=== PATIENT | female | born 1960 | race Caucasian/White ===

== ENCOUNTER 2019-11-05 18:03 | Emergency (ER) | payer MEDICAID ==
[~2019-11-05] VITALS: Ht 162.6 cm; Wt 105.0 kg
[2019-11-05] MEDS ORDERED: HYDR-3965 PO (20:05)
== END 2019-11-05 20:22 | disposition home or self-care (01) ==
LOC: ER 18:04
DX: M25.561 Pain in right knee (principal); Z88.0 Allergy status to penicillin; Z88.8 Allergy status to other drugs, medicaments and biological substances; Z88.5 Allergy status to narcotic agent; Z79.899 Other long term (current) drug therapy
CPT/HCPCS: 29505; 73564; 99284

== ENCOUNTER 2021-12-06 05:53 | Emergency (ER) | payer MEDICAID ==
[~2021-12-06] VITALS: Ht 165.1 cm; Wt 96.2 kg
[2021-12-06 08:28] LABS: BASOPHILS % (AUTO) 0.6 % (0-1); EOSINOPHILS % (AUTO) 0.5 % (0-6); HEMATOCRIT 41.5 % (35.0-45.0); HEMOGLOBIN 13.8 g/dl (12.0-16.0); LYMPHOCYTES # (AUTO) 0.9 X10'3 (1.1-4.8); LYMPHOCYTES % (AUTO) 16.9 % (21-51); MEAN CORPUSCULAR HEMOGLOBIN 30.3 PG (27.0-31.0); MEAN CORPUSCULAR HGB CONC 33.3 g/dL (33.0-36.5); MEAN CORPUSCULAR VOLUME 91.1 FL (78-98); MEAN PLATELET VOLUME 9.2 FL (7.4-10.4); MONOCYTES # (AUTO) 0.3 X10'3 (0-0.9); MONOCYTES % (AUTO) 5.4 % (2-12); NEUTROPHILS # (AUTO) 4.1 X10'3 (1.8-7.7); NEUTROPHILS % (AUTO) 76.6 % (42-75); PLATELET COUNT 180 X10'3 (140-440); RED BLOOD COUNT 4.56 X10'6 (4.20-5.60); RED CELL DISTRIBUTION WIDTH 13.7 % (11.5-14.5); WHITE BLOOD COUNT 5.4 X10'3 (4.5-11.0)
[2021-12-06 09:28] LABS: ALBUMIN 3.9 G/DL (3.4-5.0); ALBUMIN/GLOBULIN RATIO 0.9 (1.1-1.5); ALKALINE PHOSPHATASE 64 IU/L (46-116); ANION GAP 12 (8-16); ASPARTATE AMINO TRANSFERASE 55 U/L (10-37); BILIRUBIN,TOTAL 0.5 MG/DL (0.1-1.0); BLOOD UREA NITROGEN 13 MG/DL (7-18); BUN/CREATININE RATIO 18.1 (6.6-38.0); CALCIUM 8.9 MG/DL (8.5-10.1); CHLORIDE 102 MMOL/L (99-107); CREATININE 0.72 MG/DL (0.40-0.90); GLUCOSE 155 MG/DL (70-104); POTASSIUM 3.9 MMOL/L (3.5-5.1); SODIUM 141 MMOL/L (135-145); TOTAL CARBON DIOXIDE 27.2 MMOL/L (24-32); TOTAL PROTEIN 8.2 G/DL (6.4-8.2); eGFR 82 ML/MIN
[2021-12-06 09:33] LABS: MAGNESIUM 2.1 MG/DL (1.5-2.4)
[2021-12-06 10:22] VITALS: BP 127/77
[2021-12-06 13:53] LABS: ALANINE AMINOTRANSFERASE 85 U/L (12-78)
== END 2021-12-06 10:27 | disposition home or self-care (01) ==
LOC: ER 05:53
DX: R42 Dizziness and giddiness (principal); I10 Essential (primary) hypertension; E11.9 Type 2 diabetes mellitus without complications; Z88.0 Allergy status to penicillin; Z88.6 Allergy status to analgesic agent; Z88.8 Allergy status to other drugs, medicaments and biological substances
CPT/HCPCS: 36415; 71045; 80053; 83735; 83880; 84484; 85025; 93005; 99285

== ENCOUNTER 2022-01-23 08:16 | Day surgery (SDC) | payer MEDICAID ==
[2022-01-21 12:06] LABS: BASOPHILS % (AUTO) 0.7 % (0-1); EOSINOPHILS # (AUTO) 0.1 X10'3 (0-0.9); EOSINOPHILS % (AUTO) 2.5 % (0-6); HEMATOCRIT 40.2 % (35.0-45.0); HEMOGLOBIN 13.3 g/dl (12.0-16.0); LYMPHOCYTES % (AUTO) 38.7 % (21-51); MEAN CORPUSCULAR HGB CONC 33.2 g/dL (33.0-36.5); MEAN CORPUSCULAR VOLUME 90.3 FL (78-98); MONOCYTES # (AUTO) 0.3 X10'3 (0-0.9); MONOCYTES % (AUTO) 5.9 % (2-12); NEUTROPHILS # (AUTO) 2.7 X10'3 (1.8-7.7); NEUTROPHILS % (AUTO) 52.2 % (42-75); PLATELET COUNT 182 X10'3 (140-440); RED BLOOD COUNT 4.45 X10'6 (4.20-5.60); RED CELL DISTRIBUTION WIDTH 13.7 % (11.5-14.5); WHITE BLOOD COUNT 5.2 X10'3 (4.5-11.0)
[2022-01-21 12:20] LABS: APTT 23 SECONDS (22-32)
[2022-01-21 12:23] LABS: ALANINE AMINOTRANSFERASE 68 U/L (12-78); ALBUMIN/GLOBULIN RATIO 1.1 (1.1-1.5); ALKALINE PHOSPHATASE 61 IU/L (46-116); ANION GAP 8 (8-16); ASPARTATE AMINO TRANSFERASE 46 U/L (10-37); BILIRUBIN,TOTAL 0.4 MG/DL (0.1-1.0); BLOOD UREA NITROGEN 16 MG/DL (7-18); BUN/CREATININE RATIO 20.3 (6.6-38.0); CALCIUM 8.9 MG/DL (8.5-10.1); CHLORIDE 105 MMOL/L (99-107); CREATININE 0.79 MG/DL (0.40-0.90); GLUCOSE 105 MG/DL (70-104); POTASSIUM 4.2 MMOL/L (3.5-5.1); SODIUM 141 MMOL/L (135-145); TOTAL CARBON DIOXIDE 27.8 MMOL/L (24-32); TOTAL PROTEIN 7.8 G/DL (6.4-8.2); eGFR 74 ML/MIN
[2022-01-23] VITALS (11 sets, daily range): BP systolic 109–178; BP diastolic 47–91
[~2022-01-23] VITALS: Ht 165.1 cm; Wt 103.1 kg
[2022-01-23] MEDS ORDERED: nitroGLYCERIN 0.4mg SUBLingual tab SL PRN ×2 (08:30→12:35)
[2022-01-23] MEDS ORDERED: glucagon, human recombinant 1mg kit SUBCUT PRN (08:30)
[2022-01-23] MEDS ORDERED: diphenhydrAMINE 25mg capsule PO PRN (08:30)
[2022-01-23] MEDS ORDERED: DEXTROSE 15 GM of carb/4 tabs (each vial/BOTTLE has 4 tablets) PO PRN ×2 (08:30)
[2022-01-23] MEDS ORDERED: LORazepam 0.5 MG tablet PO PRN (08:30)
[2022-01-23] MEDS ORDERED: dextrose 50%-water 50ml dispensing syringe IV PRN ×2 (08:30)
[2022-01-23] MEDS ORDERED: insulin Lispro (HumaLOG) vial - multi-dose SQ SCH (08:30)
[2022-01-23] MEDS ORDERED: normal saline 1,000 ML IV SCH (08:30)
[2022-01-23] MEDS ORDERED: ATOR10TA87 PO (09:02)
[2022-01-23] MEDS ORDERED: FOLI1TAB27 PO (09:02)
[2022-01-23] MEDS ORDERED: METF-436 PO (09:02)
[2022-01-23] MEDS ORDERED: ASPI-1265 PO (09:02)
[2022-01-23] MEDS ORDERED: ERTU5TAB (09:02)
[2022-01-23] MEDS ORDERED: CYPR4TAB44 PO (09:02)
[2022-01-23] MEDS ORDERED: INSU100I31 (09:02)
[2022-01-23] MEDS ORDERED: GLIM4TAB7 PO (09:02)
[2022-01-23] MEDS ORDERED: OMEP20CA16 PO (09:02)
[2022-01-23] MEDS ORDERED: BISA-155 PO (09:02)
[2022-01-23] MEDS ORDERED: MELO-102 PO (09:02)
[2022-01-23] MEDS ORDERED: LIDOcaine 1% (10mg/ml)w/preservative injection 20ml MDV ONE (12:13)
[2022-01-23] MEDS ORDERED: midazolam 1 mg/ML 2ml injection ONE (12:13)
[2022-01-23] MEDS ORDERED: fentaNYL/PF 50MCG/1 ML 2ML syringe ONE (12:13)
[2022-01-23] MEDS ORDERED: iohexol 350 MG/ML 50ML vial IV ONE (12:14)
[2022-01-23] MEDS ORDERED: iohexol 350MG/ML 100ml bottle IV ONE (12:14)
[2022-01-23] MEDS ORDERED: ondansetron/PF 4mg/2ml inj IV PRN (12:35)
[2022-01-23] MEDS ORDERED: HYDROcodone/acetaminophen 10/325mg tab PO PRN (12:35)
[2022-01-23] MEDS ORDERED: OXAZEpam 15mg capsule PO PRN (12:35)
[2022-01-23] MEDS ORDERED: proCHLORperazine 10 MG/2 ml inj IV PRN (12:35)
[2022-01-23] MEDS ORDERED: normal saline 1000ml 1,000 ML IV SCH (12:35)
[2022-01-23] MEDS ORDERED: HYDROcodone/acetaminophen 5mg/325mg tablet PO PRN (12:35)
[2022-01-23] MEDS ORDERED: insulin glargine (Lantus) pen - multi-dose SQ SCH (21:00)
== END 2022-01-23 17:50 | disposition home or self-care (01) ==
LOC: SSTAY O 08:16
PROVIDERS: ATTEND Internal Medicine Cardiovascular Disease
DX: R94.39 Abnormal result of other cardiovascular function study (principal); R07.89 Other chest pain; R06.09 Other forms of dyspnea; E11.9 Type 2 diabetes mellitus without complications; M19.90 Unspecified osteoarthritis, unspecified site; Z88.0 Allergy status to penicillin; Z88.8 Allergy status to other drugs, medicaments and biological substances; Z79.01 Long term (current) use of anticoagulants; Z90.710 Acquired absence of both cervix and uterus; Z98.51 Tubal ligation status; Z79.899 Other long term (current) drug therapy; Z79.84 Long term (current) use of oral hypoglycemic drugs; Z79.82 Long term (current) use of aspirin
CPT/HCPCS: 36415; 71046; 80053; 82948; 85025; 85610; 85730; 93005; 93458; 99152; 99153; C1760; C1769; J1644; J1815; J2250; J3010; J3490; J7030; Q0163; Q9967; A4620; A6258

== ENCOUNTER 2022-05-23 10:43 | Emergency (ER) | payer MEDICAID ==
[~2022-05-23] VITALS: Ht 165.1 cm; Wt 93.6 kg
[~2022-05-23 10:43] MED LIST: ASPI-1265 PO; ATOR10TA87 PO; BISA-155 PO; CYPR4TAB44 PO; ERTU5TAB; FOLI1TAB27 PO; GLIM4TAB7 PO; INSU100I31; MELO-102 PO; METF-436 PO; OMEP20CA16 PO
[2022-05-23 11:28] VITALS: BP 151/86
[2022-05-23] MEDS ORDERED: BENZ-38 PO (14:37)
== END 2022-05-23 15:07 | disposition home or self-care (01) ==
LOC: ER 10:43
DX: R05.9 Cough, unspecified (principal); J02.9 Acute pharyngitis, unspecified; E11.9 Type 2 diabetes mellitus without complications; Z88.0 Allergy status to penicillin; Z88.8 Allergy status to other drugs, medicaments and biological substances; Z88.6 Allergy status to analgesic agent; Z79.82 Long term (current) use of aspirin; Z79.899 Other long term (current) drug therapy
CPT/HCPCS: 99283

== ENCOUNTER 2024-03-29 17:45 | Emergency (ER) | payer MEDICAID ==
[~2024-03-29] VITALS: Ht 162.6 cm; Wt 90.5 kg
[2024-03-29 17:48] VITALS: TEMP 98
[2024-03-29] MEDS: oxyCODONE/APAP 5-325mg tablet PO ONE (21:18)
[2024-03-29] MEDS ORDERED: OXYC-145 PO (21:44)
[2024-03-29 21:52] VITALS: BP 154/77; PULSE 85; RESP 16; O2SAT 98
== END 2024-03-29 21:54 | disposition home or self-care (01) ==
LOC: ER 17:45
DX: M25.532 Pain in left wrist (principal); E11.9 Type 2 diabetes mellitus without complications; Z88.0 Allergy status to penicillin; Z88.8 Allergy status to other drugs, medicaments and biological substances; Z79.899 Other long term (current) drug therapy; Z79.2 Long term (current) use of antibiotics; Z79.4 Long term (current) use of insulin
CPT/HCPCS: 29125; 73110; 73130; 73200; 99284

== ENCOUNTER 2025-01-22 14:05 | Inpatient (IN) | payer MEDICAID ==
[~2025-01-22] VITALS: Ht 162.6 cm; Wt 86.4 kg
[~2025-01-22 14:05] MED LIST changes: +OXYC-145 PO
[2025-01-22] MEDS ORDERED: iohexol 350MG/ML 100ml bottle IV ONE ×2 (14:34→15:37)
[2025-01-22 15:17] LABS: BASOPHILS % (AUTO) 0.3 % (0-1); EOSINOPHILS # (AUTO) 0.1 X10'3 (0-0.9); EOSINOPHILS % (AUTO) 1.1 % (0-6); HEMATOCRIT 41.2 % (35.0-45.0); HEMOGLOBIN 13.7 g/dl (12.0-16.0); LYMPHOCYTES # (AUTO) 1.5 X10'3 (1.1-4.8); LYMPHOCYTES % (AUTO) 20.2 % (21-51); MEAN CORPUSCULAR HEMOGLOBIN 29.8 PG (27.0-31.0); MEAN CORPUSCULAR HGB CONC 33.2 g/dL (33.0-36.5); MEAN CORPUSCULAR VOLUME 89.8 FL (78-98); MEAN PLATELET VOLUME 10.7 FL (7.4-10.4); MONOCYTES # (AUTO) 0.3 X10'3 (0-0.9); MONOCYTES % (AUTO) 4.4 % (2-12); NEUTROPHILS # (AUTO) 5.7 X10'3 (1.8-7.7); PLATELET COUNT 180 X10'3 (140-440); RED BLOOD COUNT 4.59 X10'6 (4.20-5.60); RED CELL DISTRIBUTION WIDTH 13.8 % (11.5-14.5); WHITE BLOOD COUNT 7.7 X10'3 (4.5-11.0)
[2025-01-22 15:24] LABS: ANION GAP 13 (8-16); BLOOD UREA NITROGEN 10 MG/DL (7-18); BUN/CREATININE RATIO 14.9 (10.0-20.0); CALCIUM 9.2 MG/DL (8.5-10.1); CHLORIDE 102 MMOL/L (99-107); CREATININE 0.67 MG/DL (0.40-0.90); GLUCOSE 141 MG/DL (70-104); POTASSIUM 3.4 MMOL/L (3.5-5.1); SODIUM 140 MMOL/L (135-145); TOTAL CARBON DIOXIDE 25.2 MMOL/L (24-32); eGFR 88 ML/MIN
[2025-01-22 15:27] LABS: APTT 23 SECONDS (22-32); INR 1.1 INR
[2025-01-22] MEDS ORDERED: iohexol 350 MG/ML 50ML vial IV ONE (15:32)
[2025-01-22] MEDS: normal saline 1000ml 1,000 ML IV ONE (15:36)
[2025-01-22 16:37] LABS: URINE AMPHETAMINE SCREEN NEGATIVE (Neg); URINE BARBITUATE SCREEN NEGATIVE (Neg); URINE BENZODIAZEPINES SCREEN NEGATIVE (Neg); URINE CANNABINOID SCREEN NEGATIVE (Neg); URINE COCAINE SCREEN NEGATIVE (Neg); URINE METHADONE SCREEN NEGATIVE (Neg); URINE OPIATE SCREEN NEGATIVE (Neg); URINE PHENCYCLIDINE SCREEN NEGATIVE (Neg)
[2025-01-22] MEDS: morphine 4 MG/ML inj SYRINge IV ONE (17:11)
[2025-01-22 17:41] LABS: BILIRUBIN,URINE NEGATIVE (Neg); CLARITY,URINE CLEAR (Clear); COLOR,URINE STRAW (Yellow); GLUCOSE, URINE >=1000 mg/dl (Neg); KETONES,URINE NEGATIVE (Neg); LEUKOCYTE ESTERASE ,URINE NEGATIVE (Neg); NITRITES, URINE NEGATIVE (Neg); OCCULT BLOOD,URINE NEGATIVE (Neg); PROTEIN,URINE NEGATIVE (Neg); UROBILINOGEN,URINE 0.2 E.U/dL (0.2-1.0)
[2025-01-22 17:46] LABS: UA COLLECTION TYPE CLN CATCH MIDSTREAM
[2025-01-22 17:49] LABS: BACTERIA,URINE NONE SEEN /HPF (Neg); RBC,URINE 0-2 /HPF (0-2); SQUAMOUS EPITHELIAL CELL,UR FEW /LPF (FEW); WBC,URINE 0-4 /HPF (0-4)
[2025-01-22 17:50] LABS: MUCUS STRANDS FEW /LPF (Neg)
[2025-01-22] MEDS ORDERED: ondansetron/PF 4mg/2ml inj IV PRN (20:30)
[2025-01-22] MEDS ORDERED: potassium Cl 40MEQ/1/2NS 520ml 520 ML IV PRN (20:30)
[2025-01-22] MEDS ORDERED: acetaminophen 325mg tablet PO PRN (20:30)
[2025-01-22] MEDS ORDERED: magnesium hydroxide 30ml (MOM) UD suspension PO PRN (20:30)
[2025-01-22] MEDS ORDERED: potassium Cl 20 mEq SR tablet PO PRN (20:30)
[2025-01-22] MEDS ORDERED: magnesium Cl slow-release 64mg tablet PO PRN (20:30)
[2025-01-22] MEDS ORDERED: mag hydrox/Alum hydrox/simeth 30ml oral suspension PO PRN (20:30)
[2025-01-22] MEDS ORDERED: magnesium sulf-water 4G/100mL 100 ML IV PRN (20:30)
[2025-01-22] MEDS ORDERED: magnesium sulf-water 2g/50mL 50 ML IV PRN (20:30)
[2025-01-22] MEDS ORDERED: morphine 2 MG/ML inj. syringe IV PRN ×2 (20:30)
[2025-01-22 20:56] LABS: CHOL/HDL RATIO 2.6 (0.00-4.99); CHOLESTEROL 119 MG/DL (0-200); HDL CHOLESTEROL 46 MG/DL (35-60); LDL CHOLESTEROL 54 MG/DL (50-100); TRIGLYCERIDES 98 MG/DL (20-135)
[2025-01-22 20:57] LABS: HEMOGLOBIN A1C 6.6 % (4.5-6.2)
[2025-01-22] MEDS: aspirin 81mg tab.chew PO SCH (21:11)
[2025-01-22] MEDS: atorvastatin 20mg tablet PO SCH (21:11)
[2025-01-22] MEDS ORDERED: CELE-193 PO (21:44)
[2025-01-22] MEDS ORDERED: ATOR40TA PO (21:44)
[2025-01-22] MEDS ORDERED: ERTU15TA (21:44)
[2025-01-22] MEDS ORDERED: GABA-530 PO (21:44)
[2025-01-22 22:15] VITALS: BP 170/100; PULSE 83; RESP 20; TEMP 98.5; O2SAT 91
[2025-01-22] MEDS: potassium Cl 20 mEq SR tablet PO PRN (22:43)
[2025-01-23] VITALS (9 sets, daily range): BP systolic 111–147; BP diastolic 60–88; PULSE 63–78; RESP 16–18; TEMP 97.4–99.8; O2SAT 93–97
[2025-01-23] MEDS ORDERED: labetalol 20mg/4ml (5mg/ml) syringe IV PRN (00:35)
[2025-01-23] MEDS ORDERED: DEXTROSE 15 GM of carb/4 tabs (each vial/BOTTLE has 4 tablets) PO PRN ×2 (00:45)
[2025-01-23] MEDS ORDERED: dextrose 50%-water 50ml dispensing syringe IV PRN ×2 (00:45)
[2025-01-23] MEDS ORDERED: glucagon, human recombinant 1mg kit SUBCUT PRN (00:45)
[2025-01-23] MEDS ORDERED: albuterol 2.5 MG/3 ML nebule NEB PRN (00:45)
[2025-01-23] MEDS: normal saline 1000ml 1,000 ML IV SCH (00:46)
[2025-01-23 06:18] LABS: BASOPHILS % (AUTO) 0.5 % (0-1); EOSINOPHILS # (AUTO) 0.1 X10'3 (0-0.9); EOSINOPHILS % (AUTO) 1.9 % (0-6); HEMATOCRIT 39.9 % (35.0-45.0); HEMOGLOBIN 13.2 g/dl (12.0-16.0); LYMPHOCYTES % (AUTO) 31.2 % (21-51); MEAN CORPUSCULAR HEMOGLOBIN 30.1 PG (27.0-31.0); MEAN CORPUSCULAR VOLUME 91.1 FL (78-98); MEAN PLATELET VOLUME 8.7 FL (7.4-10.4); MONOCYTES # (AUTO) 0.4 X10'3 (0-0.9); MONOCYTES % (AUTO) 6.8 % (2-12); NEUTROPHILS # (AUTO) 3.8 X10'3 (1.8-7.7); NEUTROPHILS % (AUTO) 59.6 % (42-75); PLATELET COUNT 128 X10'3 (140-440); RED BLOOD COUNT 4.38 X10'6 (4.20-5.60); RED CELL DISTRIBUTION WIDTH 14.1 % (11.5-14.5); WHITE BLOOD COUNT 6.3 X10'3 (4.5-11.0)
[2025-01-23 06:38] LABS: ALANINE AMINOTRANSFERASE 27 U/L (12-78); ALBUMIN 3.4 G/DL (3.4-5.0); ALBUMIN/GLOBULIN RATIO 1.1 (1.1-1.5); ALKALINE PHOSPHATASE 46 IU/L (46-116); ANION GAP 5 (8-16); ASPARTATE AMINO TRANSFERASE 19 U/L (10-37); BILIRUBIN,TOTAL 1.5 MG/DL (0.1-1.0); BLOOD UREA NITROGEN 8 MG/DL (7-18); BUN/CREATININE RATIO 15.1 (10.0-20.0); CALCIUM 8.7 MG/DL (8.5-10.1); CHLORIDE 104 MMOL/L (99-107); CREATININE 0.53 MG/DL (0.40-0.90); GLUCOSE 114 MG/DL (70-104); MAGNESIUM 1.9 MG/DL (1.5-2.4); POTASSIUM 3.8 MMOL/L (3.5-5.1); SODIUM 141 MMOL/L (135-145); TOTAL CARBON DIOXIDE 32.3 MMOL/L (24-32); TOTAL PROTEIN 6.5 G/DL (6.4-8.2); eCRCL 91 ML/MIN; eGFR > 90 ML/MIN
[2025-01-23] MEDS: K and/or MAG REPLACEMENT MC SCH (06:49)
[2025-01-23] MEDS: INSULIN LISPRO 100 UNIT/ML INSULN.PEN MULTI-DOSE SQ SCH (07:30)
[2025-01-23] MEDS: docusate sod 100mg capsule PO SCH (09:34)
[2025-01-23] MEDS: aspirin 81mg tab.chew PO SCH (09:35)
[2025-01-23] MEDS: ipratropium/albuterol 3ml nebule NEB PRN (11:05)
[2025-01-23] MEDS ORDERED: ALBU10.7 (16:00)
[2025-01-23] MEDS ORDERED: BUDE10.22 PO (16:00)
[2025-01-23] MEDS ORDERED: ATOR40TA72 (16:00)
[2025-01-23] MEDS ORDERED: LATA2.5D14 EACHEYE (16:00)
[2025-01-23] MEDS ORDERED: DOCU-392 (16:00)
[2025-01-23] MEDS ORDERED: CELE-148 PO (16:00)
[2025-01-23] MEDS: folic acid 1mg tablet PO SCH (16:14)
[2025-01-23] MEDS: gabapentin 100mg capsule PO SCH (21:29)
[2025-01-23] MEDS: guaiFENesin ER 600mg tablet PO SCH (21:29)
[2025-01-23] MEDS: acetaminophen 325mg tablet PO PRN (21:36)
[2025-01-24] VITALS (7 sets, daily range): BP systolic 118–140; BP diastolic 63–80; PULSE 69–78; RESP 13–20; TEMP 97.3–97.8; O2SAT 93–96
[2025-01-24 06:45] LABS: EOSINOPHILS # (AUTO) 0.2 X10'3 (0-0.9); EOSINOPHILS % (AUTO) 3.4 % (0-6); HEMATOCRIT 37.8 % (35.0-45.0); HEMOGLOBIN 12.5 g/dl (12.0-16.0); LYMPHOCYTES # (AUTO) 1.4 X10'3 (1.1-4.8); LYMPHOCYTES % (AUTO) 32.8 % (21-51); MEAN CORPUSCULAR HGB CONC 33.1 g/dL (33.0-36.5); MEAN CORPUSCULAR VOLUME 90.7 FL (78-98); MEAN PLATELET VOLUME 9.2 FL (7.4-10.4); MONOCYTES # (AUTO) 0.4 X10'3 (0-0.9); NEUTROPHILS # (AUTO) 2.4 X10'3 (1.8-7.7); NEUTROPHILS % (AUTO) 54.8 % (42-75); PLATELET COUNT 81 X10'3 (140-440); RED BLOOD COUNT 4.17 X10'6 (4.20-5.60); RED CELL DISTRIBUTION WIDTH 14.2 % (11.5-14.5); WHITE BLOOD COUNT 4.4 X10'3 (4.5-11.0)
[2025-01-24 07:00] LABS: ALANINE AMINOTRANSFERASE 23 U/L (12-78); ALBUMIN 3.1 G/DL (3.4-5.0); ALKALINE PHOSPHATASE 42 IU/L (46-116); ANION GAP 4 (8-16); ASPARTATE AMINO TRANSFERASE 14 U/L (10-37); BILIRUBIN,TOTAL 1.1 MG/DL (0.1-1.0); BLOOD UREA NITROGEN 11 MG/DL (7-18); BUN/CREATININE RATIO 23.9 (10.0-20.0); CALCIUM 8.4 MG/DL (8.5-10.1); CHLORIDE 106 MMOL/L (99-107); CREATININE 0.46 MG/DL (0.40-0.90); GLUCOSE 98 MG/DL (70-104); MAGNESIUM 1.9 MG/DL (1.5-2.4); POTASSIUM 3.7 MMOL/L (3.5-5.1); SODIUM 141 MMOL/L (135-145); TOTAL PROTEIN 6.1 G/DL (6.4-8.2); eCRCL 105 ML/MIN; eGFR > 90 ML/MIN
[2025-01-24] MEDS: pantoprazole 40mg Tablet.DR PO SCH (09:13)
[2025-01-24] MEDS: atorvastatin 20mg tablet PO SCH (09:13)
[2025-01-24] MEDS ORDERED: TIRZ2.5P SQ (10:41)
[2025-01-24] MEDS ORDERED: ALBU18HF2 INH (12:34)
[2025-01-24] MEDS: nystatin 15 GM powder TP SCH (12:35)
[2025-01-24] MEDS: Tirzepatide (Mounjaro) 2.5 MG SQ SCH (19:53)
[2025-01-25 06:00] VITALS: BP 137/76; PULSE 70; RESP 16; TEMP 97.6; O2SAT 94
[2025-01-25 06:24] LABS: BASOPHILS % (AUTO) 0.5 % (0-1); EOSINOPHILS # (AUTO) 0.2 X10'3 (0-0.9); HEMATOCRIT 40.2 % (35.0-45.0); HEMOGLOBIN 13.3 g/dl (12.0-16.0); LYMPHOCYTES # (AUTO) 1.3 X10'3 (1.1-4.8); LYMPHOCYTES % (AUTO) 24.3 % (21-51); MEAN CORPUSCULAR HEMOGLOBIN 30.2 PG (27.0-31.0); MEAN CORPUSCULAR VOLUME 91.5 FL (78-98); MEAN PLATELET VOLUME 9.9 FL (7.4-10.4); MONOCYTES # (AUTO) 0.4 X10'3 (0-0.9); MONOCYTES % (AUTO) 7.8 % (2-12); NEUTROPHILS # (AUTO) 3.4 X10'3 (1.8-7.7); NEUTROPHILS % (AUTO) 64.4 % (42-75); PLATELET COUNT 168 X10'3 (140-440); RED BLOOD COUNT 4.39 X10'6 (4.20-5.60); RED CELL DISTRIBUTION WIDTH 14.1 % (11.5-14.5); WHITE BLOOD COUNT 5.3 X10'3 (4.5-11.0)
[2025-01-25 07:22] LABS: ALANINE AMINOTRANSFERASE 20 U/L (12-78); ALBUMIN 3.3 G/DL (3.4-5.0); ALBUMIN/GLOBULIN RATIO 0.9 (1.1-1.5); ALKALINE PHOSPHATASE 46 IU/L (46-116); ANION GAP 9 (8-16); ASPARTATE AMINO TRANSFERASE 21 U/L (10-37); BILIRUBIN,TOTAL 0.8 MG/DL (0.1-1.0); BLOOD UREA NITROGEN 11 MG/DL (7-18); CHLORIDE 105 MMOL/L (99-107); CREATININE 0.61 MG/DL (0.40-0.90); GLUCOSE 116 MG/DL (70-104); MAGNESIUM 1.9 MG/DL (1.5-2.4); POTASSIUM 3.9 MMOL/L (3.5-5.1); SODIUM 141 MMOL/L (135-145); TOTAL CARBON DIOXIDE 27.5 MMOL/L (24-32); TOTAL PROTEIN 6.8 G/DL (6.4-8.2); eCRCL 79 ML/MIN; eGFR > 90 ML/MIN
[2025-01-25 10:00] VITALS: BP 124/78; PULSE 72; RESP 14; TEMP 98.1; O2SAT 94
[2025-01-25] MEDS ORDERED: ipratropium/albuterol 3ml nebule NEB PRN (14:25)
[2025-01-25 18:00] VITALS: BP 134/81; PULSE 64; RESP 14; TEMP 97.7; O2SAT 96
[2025-01-25 19:51] VITALS: PULSE 71; RESP 18; O2SAT 91
[2025-01-25 20:00] VITALS: RESP 14; O2SAT 96
[2025-01-25 22:00] VITALS: BP 121/85; PULSE 71; RESP 18; TEMP 97.6; O2SAT 93
[2025-01-26] VITALS (8 sets, daily range): BP systolic 119–127; BP diastolic 68–73; PULSE 61–89; RESP 16–20; TEMP 97–98.7; O2SAT 90–98
[2025-01-26 06:21] LABS: ALANINE AMINOTRANSFERASE 24 U/L (12-78); ALBUMIN 3.4 G/DL (3.4-5.0); ALKALINE PHOSPHATASE 48 IU/L (46-116); ANION GAP 7 (8-16); ASPARTATE AMINO TRANSFERASE 18 U/L (10-37); BLOOD UREA NITROGEN 12 MG/DL (7-18); BUN/CREATININE RATIO 20.3 (10.0-20.0); CALCIUM 8.8 MG/DL (8.5-10.1); CHLORIDE 103 MMOL/L (99-107); CREATININE 0.59 MG/DL (0.40-0.90); GLUCOSE 128 MG/DL (70-104); MAGNESIUM 1.9 MG/DL (1.5-2.4); POTASSIUM 3.8 MMOL/L (3.5-5.1); SODIUM 140 MMOL/L (135-145); TOTAL CARBON DIOXIDE 30.5 MMOL/L (24-32); TOTAL PROTEIN 6.9 G/DL (6.4-8.2); eCRCL 82 ML/MIN; eGFR > 90 ML/MIN
[2025-01-26 09:03] LABS: BASOPHILS % (AUTO) 0.7 % (0-1); EOSINOPHILS # (AUTO) 0.2 X10'3 (0-0.9); EOSINOPHILS % (AUTO) 3.4 % (0-6); HEMATOCRIT 41.8 % (35.0-45.0); HEMOGLOBIN 13.9 g/dl (12.0-16.0); LYMPHOCYTES # (AUTO) 1.5 X10'3 (1.1-4.8); MEAN CORPUSCULAR HEMOGLOBIN 30.2 PG (27.0-31.0); MEAN CORPUSCULAR HGB CONC 33.4 g/dL (33.0-36.5); MEAN CORPUSCULAR VOLUME 90.7 FL (78-98); MEAN PLATELET VOLUME 10.3 FL (7.4-10.4); MONOCYTES # (AUTO) 0.4 X10'3 (0-0.9); MONOCYTES % (AUTO) 7.3 % (2-12); NEUTROPHILS # (AUTO) 3.3 X10'3 (1.8-7.7); NEUTROPHILS % (AUTO) 61.6 % (42-75); PLATELET COUNT 170 X10'3 (140-440); RED BLOOD COUNT 4.61 X10'6 (4.20-5.60); WHITE BLOOD COUNT 5.4 X10'3 (4.5-11.0)
[2025-01-26] MEDS: HYDROcodone/acetaminophen 5mg/325mg tablet PO PRN (17:20)
[2025-01-26] MEDS: DOXYCYCLINE 100MG CAPSULE PO SCH (17:53)
[2025-01-26] MEDS: ipratropium/albuterol 3ml nebule NEB SCH (18:58)
[2025-01-26] MEDS: methylPREDNISolone sod succ 125mg/2ml vial IV SCH (20:00)
[2025-01-27 02:58] VITALS: PULSE 78; RESP 20; O2SAT 93
[2025-01-27 03:04] VITALS: PULSE 69; RESP 18
[2025-01-27 05:54] LABS: ALANINE AMINOTRANSFERASE 23 U/L (12-78); ALBUMIN 3.3 G/DL (3.4-5.0); ALBUMIN/GLOBULIN RATIO 0.9 (1.1-1.5); ALKALINE PHOSPHATASE 47 IU/L (46-116); ANION GAP 7 (8-16); ASPARTATE AMINO TRANSFERASE 21 U/L (10-37); BILIRUBIN,TOTAL 0.7 MG/DL (0.1-1.0); BLOOD UREA NITROGEN 16 MG/DL (7-18); BUN/CREATININE RATIO 24.6 (10.0-20.0); CALCIUM 8.9 MG/DL (8.5-10.1); CHLORIDE 104 MMOL/L (99-107); CREATININE 0.65 MG/DL (0.40-0.90); GLUCOSE 140 MG/DL (70-104); SODIUM 140 MMOL/L (135-145); TOTAL CARBON DIOXIDE 29.4 MMOL/L (24-32); TOTAL PROTEIN 6.9 G/DL (6.4-8.2); eCRCL 75 ML/MIN; eGFR > 90 ML/MIN
[2025-01-27 08:05] LABS: BASOPHILS % (AUTO) 0.8 % (0-1); EOSINOPHILS # (AUTO) 0.1 X10'3 (0-0.9); EOSINOPHILS % (AUTO) 2.5 % (0-6); HEMATOCRIT 39.1 % (35.0-45.0); HEMOGLOBIN 13.2 g/dl (12.0-16.0); LYMPHOCYTES # (AUTO) 1.6 X10'3 (1.1-4.8); LYMPHOCYTES % (AUTO) 33.4 % (21-51); MEAN CORPUSCULAR HEMOGLOBIN 30.4 PG (27.0-31.0); MEAN CORPUSCULAR HGB CONC 33.7 g/dL (33.0-36.5); MEAN CORPUSCULAR VOLUME 90.1 FL (78-98); MEAN PLATELET VOLUME 8.6 FL (7.4-10.4); MONOCYTES # (AUTO) 0.4 X10'3 (0-0.9); MONOCYTES % (AUTO) 8.9 % (2-12); NEUTROPHILS # (AUTO) 2.5 X10'3 (1.8-7.7); NEUTROPHILS % (AUTO) 54.4 % (42-75); PLATELET COUNT 188 X10'3 (140-440); RED BLOOD COUNT 4.34 X10'6 (4.20-5.60); RED CELL DISTRIBUTION WIDTH 14.3 % (11.5-14.5); WHITE BLOOD COUNT 4.7 X10'3 (4.5-11.0)
[2025-01-27 08:29] VITALS: PULSE 71; PULSE 78; RESP 18; RESP 20; O2SAT 93
[2025-01-27] MEDS: predniSONE 20 mg tablet PO SCH (09:13)
[2025-01-27 10:00] VITALS: BP 133/74; PULSE 78; RESP 16; TEMP 98.3; O2SAT 93
== END 2025-01-27 13:40 | DRG 340 ==
LOC: ER 14:05 → ED HOLD 20:26 → UNDOADMIN 20:26 → ED HOLD 20:30 → ORTHO 4S 22:13
PROVIDERS: ADMIT Internal Medicine; ATTEND Internal Medicine
PROC: BW251ZZ Computerized Tomography (CT Scan) of Chest, Abdomen and Pelvis using Low Osmolar Contrast (ICD-10-PCS; principal; 2025-01-22)
PROC: B3251ZZ Computerized Tomography (CT Scan) of Bilateral Common Carotid Arteries using Low Osmolar Contrast (ICD-10-PCS; 2025-01-22)
PROC: B32G1ZZ Computerized Tomography (CT Scan) of Bilateral Vertebral Arteries using Low Osmolar Contrast (ICD-10-PCS; 2025-01-22)
PROC: B32R1ZZ Computerized Tomography (CT Scan) of Intracranial Arteries using Low Osmolar Contrast (ICD-10-PCS; 2025-01-22)
PROC: B3281ZZ Computerized Tomography (CT Scan) of Bilateral Internal Carotid Arteries using Low Osmolar Contrast (ICD-10-PCS; 2025-01-22)
DX: S72.111A Displaced fracture of greater trochanter of right femur, initial encounter for closed fracture (principal); R47.01 Aphasia; E11.9 Type 2 diabetes mellitus without complications; W18.39XA Other fall on same level, initial encounter; J44.9 Chronic obstructive pulmonary disease, unspecified; K21.9 Gastro-esophageal reflux disease without esophagitis; Y93.89 Activity, other specified; Y99.8 Other external cause status; Y92.89 Other specified places as the place of occurrence of the external cause; Z88.1 Allergy status to other antibiotic agents; Z88.0 Allergy status to penicillin; Z79.82 Long term (current) use of aspirin; Z79.84 Long term (current) use of oral hypoglycemic drugs; Z79.899 Other long term (current) drug therapy; Z87.891 Personal history of nicotine dependence
CPT/HCPCS: 36415; 70450; 70496; 70498; 71045; 71275; 73501; 73700; 74174; 80048; 80053; 80061; 80305; 81001; 82948; 83036; 83735; 85025; 85610; 85730; 87081; 92508; 92616; 93005; 93306; 94640; 94664; 94760; 96361; 96374; 97110; 97116; 97162; 97530; 99285; G0378; J2270; J7030; J7512; Q9967

== ENCOUNTER 2025-09-11 14:38 | Emergency (ER) | payer MEDICARE, MEDICAID ==
[~2025-09-11] VITALS: Ht 165.1 cm; Wt 81.9 kg
[~2025-09-11 14:38] MED LIST changes: -ATOR10TA87 PO; +ATOR40TA PO; +CELE-193 PO; -CYPR4TAB44 PO; +ERTU15TA PO; -ERTU5TAB; +GABA-530 PO; -GLIM4TAB7 PO; -INSU100I31; +LATA2.5D7 EACHEYE; -MELO-102 PO; -OXYC-145 PO; +TIRZ2.5P SQ
[2025-09-11] MEDS: ketorolac trometh 30MG/ML vial 30 MG/ML VIAL IM ONE (18:41)
--- NOTE | 2025-09-11 18:45 | Physician Documentation ---
History of Present Illness General Chief Complaint: Leg Pain Stated Complaint: R LEG PAIN Time Seen by MD: 15:13 Primary Medical Doctor: Thomas Aguirre Anderson History of Present Illness Initial Comments 64-year-old female who presents to the emergency department with a complaint of acute on chronic right lower back and hip pain. Denies recent illness or injury. Denies fever. Patient has been traveling [employer] without resolution her pain. States that her symptoms been present increasing in severity for a proximally three weeks. She has had a nonsurgical fracture of the right hip back in January. She has otherwise been doing well. Her pain does radiate down her posterior thigh to her lower extremity. There has been no loss of bowel or bladder, rash or dysuria. Medication Reconciliation Allergies: Coded Allergies: Penicillins (Verified Allergy, Unknown, 03/29/24) baclofen (Verified Allergy, Unknown, 03/29/24) hydroxyzine HCl (Verified Allergy, Unknown, 03/29/24) hydroxyzine pamoate (Verified Allergy, Unknown, 03/29/24) tramadol (Verified Allergy, Unknown, 03/29/24) Scheduled Aspirin (Aspirin), 1 TAB PO DAILY, (Reported) Atorvastatin Calcium* (Lipitor*), 1 TAB PO DAILY, (Reported) Bisacodyl (Dulcolax), 2 TAB PO UD, (Reported) Celecoxib (Celebrex), 1 CAP PO DAILY, (Reported) Ertugliflozin Pidolate (Steglatro), 1 TAB PO QAM, (Reported) Folic Acid* (Folic Acid*), 1 TAB PO DAILY, (Reported) Gabapentin (Gabapentin), 3 CAP PO HS, (Reported) Metformin Hcl (Metformin Hcl), 500 MG PO BID, (Reported) Omeprazole (Omeprazole), 1 CAP PO DAILY, (Reported) Tirzepatide (Mounjaro), 2.5 MG SQ Q7D, (Reported) Miscellaneous Medications Latanoprost (Latanoprost), EACHEYE, (Reported) Past Medical History Past Medical History: Diabetes Past Surgical History: noncontributory Smoking: Quit greater than 1 year Alcohol Use: None Drug Use: none Lives In: Home Occupation: disabled Review of Systems All Other Systems at this time: Reviewed and Negative Constitutional: Denies: fever, chills : Denies: flank pain, hematuria, dysuria, discharge, frequency Musc: Reports: back pain; Denies: pain, joint pain, joint swelling, swelling Integ: Denies: rash Physical Exam Physical Exam Vital Signs: RN Vital Signs have been reviewed: Yes, Temperature: 98.0, Source: Temporal, Heart Rate: 78, Respiratory Rate: 16, BP: 127/79, Pulse Oximetry: 98, Weight: 81.900 Oxygen Flow Rate: 0 General Appearance: alert, WD/WN, mild distress Head: normal inspection Face: normal inspection Pupils/EOM/Fundus: PERRLA Neck: non-tender, full range of motion Respiratory: no respiratory distress Chest: no accessory muscle use Cardiovascular: normal peripheral pulses Back: no vertebral tenderness Back Right SI pain Extremities: other (Positive straight leg raise on the right. No reproducible pain with abduction, adduction internal or external rotation. Mild reproducible plain with hip flexion.) Neurologic: oriented x4 Motor / Sensory: no motor deficit, no sensory deficit Psychiatric: normal mood/affect Skin: normal color, warm/dry; No: rash Progress Results/Orders Results/Orders Orders - AARON SILVA PAC Lidocaine 5% Patch (Lidoderm 5% Patch) (09/11/25 18:20) Completed Orders - AARON SILVA PAC Ketorolac Trometh 30mg/Ml Vial (Toradol (09/11/25 18:15) Vital Signs 09/11/25 14:42 Temp 98.0 Pulse 78 Resp 16 B/P (MAP) 127/79 Pulse Ox 98 O2 Flow Rate 0 Medical Decision Making Additional information obtaine: old records Findings 64 y/o female who's history & examination is consistent with right sciatica with radicular symptoms without clinical suspicion for cauda equina, diskitis epidural abscess. Differential Diagnosis Differential diagnosis include those listed above yet can not exclude acute on chronic right hip pain due to prior nonsurgical fracture. Pain medicines provided in the emergency department both be diagnostic and therapeutic. Patient will follow up with outpatient primary care physician for additional evaluation and management. We will go ahead the patient discontinued cyclobenzaprine and begin Zanaflex. Discharged in the emergency department grossly neurologically intact without focal neuro deficits. Departure Disposition: HOME / SELF CARE / HOMELESS Impression: Primary Impression: Sciatica Qualified Codes: M54.31 - Sciatica, right side Discharge Instructions: Sciatica Additional Instructions: Discontinued and Flexeril and begin Zanaflex and apply Voltaren nighttime. Please make follow up with the primary care physician and to return to the emergency department if symptoms worsen. Thank you for visiting [facility]. Referrals: NO PRIMARY CARE PROVIDER (PCP) Prescriptions Tizanidine Hcl (ZANAFLEX) 4 Mg Tablet 1 TAB PO Q8H for 30 Days, #30 TAB 0 Refills Prov: AARON SILVA PAC 09/11/25 Education Educated: Patient Educated regarding: diagnosis, treatment, prognosis Signature Scribe Signature: . Attestation: . AARON SILVA PAC Sep 11, 2025 18:45
[2025-09-11] MEDS ORDERED: TIZA4TAB11 PO (18:46)
[2025-09-11 19:20] VITALS: BP 125/72; PULSE 76; RESP 18; TEMP 98.6; O2SAT 99
== END 2025-09-11 19:21 | disposition home or self-care (01) ==
LOC: ER 14:38
DX: M54.31 Sciatica, right side (principal); E11.9 Type 2 diabetes mellitus without complications; Z88.0 Allergy status to penicillin; Z88.5 Allergy status to narcotic agent; Z88.8 Allergy status to other drugs, medicaments and biological substances; Z79.82 Long term (current) use of aspirin; Z79.899 Other long term (current) drug therapy; Z79.84 Long term (current) use of oral hypoglycemic drugs
CPT/HCPCS: 96372; 99283; J1885